=== PATIENT | female | born 1995 | race Caucasian/White ===

== ENCOUNTER 2017-01-18 10:11 | Inpatient (IN) ==
[2017-01-18 11:06] LABS: Basophils % 0.3 %; Eosinophils # 0.1 K/mcL (0.0-0.6); Eosinophils % 0.5 %; Hematocrit 34.7 % (35.3-44.9); Hemoglobin 11.6 g/dL (11.5-15.4); Immature Granulocytes % 0.2 % (0-4); Lymphocytes # 1.5 K/mcL (0.6-4.6); Lymphocytes % 15.1 %; Mean Corpuscular HGB Conc 33.4 g/dL (31.6-35.5); Mean Corpuscular Hemoglobin 28.4 pg (28.0-33.3); Mean Corpuscular Volume 84.8 fL (83.0-100.0); Mean Platelet Volume 10.3 fL (9.4-12.4); Monocytes # 0.5 K/mcL (0.0-1.3); Monocytes % 4.4 %; Neutrophils # 8.1 K/mcL (1.6-8.9); Platelet Count 241 K/mcL (140-400); Red Blood Count 4.09 M/mcL (3.82-4.97); Red Cell Distribution Width 13.2 % (11.5-14.5); Segmented Neutrophils % 79.5 %
[2017-01-18 11:19] LABS: Alanine Aminotransferase 7 Units/L (0-55); Aspartate Amino Transferase 11 Units/L (5-34); BUN/Creatinine Ratio 6 (6-26); Lactate Dehydrogenase 178 Units/L (159-327); Uric Acid 3.7 mg/dL (2.6-6.0); eGFR For African Americans > 60 (> 60); eGFR For Non-African Americans > 60 (> 60)
[2017-01-18 11:23] LABS: Blood Urea Nitrogen 4 mg/dL (7-20); Protein/Creatinine Ratio,Urine 0.39 mg/mg (0-0.20)
[2017-01-18] MEDS ORDERED: Famotidine 20 MG/2 ML VIAL IVP PRN (11:50)
[2017-01-18] MEDS ORDERED: Naloxone 0.4 MG/ML INJ IVP PRN (11:50)
--- NOTE | 2017-01-18 12:15 | OB/GYN History & Physical ---
Date of Encounter: 01/18/17 Time of Encounter: 12:10 Assessment and Plan (1) 37 weeks gestation of Current visit: Yes Status: Acute admit for delivery (2) PIH ( induced hypertension), antepartum Current visit: Yes Status: Acute Continue to monitor BPs Delivery at 37 weeks History of Present Illness Chief complaint: Gestational Hypertension HPI: Ms. Medel is a 22 year old female at 36w6d presents to labor and delivery from office for PIH evaluation. Patient had elevated BP of 144/94 and repeat BP was 138/100. Patient denies LOF or VB. Denies headache, visual disturbances or epigastric pain. Reports +FM. PIH labs WNL however, Protein creatinine ratio was elevated at 0.39. Discussed patient with Dr. Hannah and decision was made to induce labor at 37 weeks gestation which is at midnight. Blood type:A Positive, Rubella: Immune, Hep. B: nonreactive, GBS: Pending. Past Med Surg Social Fam HX - Past Medical History Source: patient Medical history: no medical history Psychiatric history: no psych history - Past Surgical History Surgical History: no surgical history - Social History Smoking Status: Never smoker Smokeless Tobacco Status: No Alcohol use: none Drug use: none Current living situation: Home - Independent Activity Level: Independent ambulation Recent Out of Country Travel Within the Last 8 Weeks: No Exposure or Possible Exposure to Illness During Travel: No Obstetrical History - Pregnancies : 1 Para: 0 Term: 0 : 0 Ab's: 0 Livin Review of System OB - Constitutional Constitutional ROS IM: no chills, no fever(s), no headache(s) - Cardiovascular Cardiovascular: no lightheadedness, no palpitations, no syncope - Respiratory Respiratory: no dyspnea - Gastrointestinal Gastrointestinal: no constipation, no cramping, no diarrhea, no heartburn, no nausea, no vomiting - Genitourinary Genitourinary: no abnormal vaginal bleeding, no dysuria, no flank pain, no urinary hesitancy, no urinary urgency, no vaginal discharge, no vaginal odor Exam - Constitutional Constitutional: well developed, well nourished, no acute distress, average body habitus - HEENT HEENT: Normocephaly, Mucus Membranes Moist - Neck Neck exam: full ROM, supple - Lungs Respiratory exam: CTAB - Cardiovascular Cardiovascular exam: RRR, +S1, +S2 - Abdomen Abdomen: Present: bowel sounds normal, gravid, non tender - Extremities Extremities exam: full ROM, normal capillary refill, normal inspection Deep Tendon Reflex Grade: 2+ Normal - Cervix Dilation: 2 Effacement: 70 Station: -1 - Uterus Uterus exam: Present: normal size, normal contour - Anus/Rectum Anus/Rectum: Present: normal perianal skin - Comments Comments: FHR 135 bpm moderate variability +15x15 accels no decels noted. Contractions 1- 3.5 min apart. Cat. 1 tracing. Results Result Diagrams: 01/18/17 10:35 01/18/17 10:35 Abnormal lab results Hct 34.7 % (35.3-44.9) L 01/18/17 10:35 BUN 4 mg/dL (7-20) L 01/18/17 10:35 Protein/Creatinin Ratio 0.39 mg/mg (0-0.20) H 01/18/17 10:35 Urine Total Protein 87 mg/dL (1-14) H 01/18/17 10:35 All other labs normal. - VTE Reasons for not Prescribing Prophylaxis: Treatment not Indicated - Low risk for VTE
--- NOTE | 2017-01-18 20:50 | Anesthesia Evaluation PreOp ---
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: Denies Any Significant HX Other Medical History: GERD Anesthesia History: No Prior Anesthetic Complications (none) : Yes Test: Positive Alcohol Use: none Drug use: none Medications and Allergies Vits #90/Iron Fum/FA [ Formula Tablet] 1 each PO DAILY [History] Promethazine [Phenergan] 25 mg PO Q6HR 01/18/17 [History] Allergies No Known Allergies Allergy (Verified 01/18/17 15:55) - Meds/Allergy Pre-op Review Medications Reviewed: Yes Allergies Reviewed: Yes Beta Blockers on Current Med List: No Anesthesia Results - Labs 01/18/17 10:35 01/18/17 10:35 Anesthesia Exam 123/76 92 16 fht 144 Height: 5'5" Weight: 90 kg NPO (# of Hours): 3 Pain Scale: 2 Pain Scale Used: Numeric (1 - 10) - HEENT Pupil (Motor): Pupils equal Mallampati: II Teeth: Poor dentition Oral Opening: Greater than 3 - VULCANIZING MACHINE OPERATOR LOC: Oriented VULCANIZING MACHINE OPERATOR Motor: Normal RUE, Normal LUE, Normal RLE, Normal LLE, Normal Face VULCANIZING MACHINE OPERATOR Sensory: Normal: RUE, LUE, RLE, LLE, Face - Cardiac Murmur: None - Pulmonary Breath Sounds: bilateral Clear Respiratory Effort: Symmetrical Anesthesia Assess/Plan ASA Score: 2 Modified Evelina Scale for Level of Consciousness: Cooperative, oriented, and tranquil Anesthetic Plan: Regional Autologous Blood: No Monitoring Plan: Standard Monitors Recovery Plan: Other (risks discussed, questions answered, consented)
[2017-01-19] MEDS ORDERED: miSOPROStol 25 MCG TABLET VG PRN
[2017-01-19] MEDS ORDERED: Ondansetron 4 MG/2 ML VIAL IVP PRN (04:32)
[2017-01-19] MEDS ORDERED: Ringers Solution, Lactated 1,000 ML ONE ×3 (04:34→08:44)
[2017-01-19] MEDS ORDERED: *HR* Nalbuphine 20 MG/ML AMPUL IVP PRN (05:33)
--- NOTE | 2017-01-19 06:26 | OB Labor Progress Note ---
Date of Encounter: 01/19/17 Time of Encounter: 06:24 Labor Progress Note - Subjective Subjective: Patient resting at this time. Discussed POC with patient. Patient denies any questions or concerns. - Cervix Cervix: 4/90/-1 - Heart Tones Heart Tones: 145 bpm moderate variability +15x15 accels no decels noted. Cat. 1 tracing - Heart [place]: 1-2 min apart - Interventions Interventions: SVE, AROM moderate amount of clear fluid. IUPC placed without diffiuculty. Patient tolerated well. - Plan Plan: Continue labor management.
[2017-01-19] MEDS ORDERED: *HR* Ropivacaine/PF 0.2% 10 ML AMPUL ONE (07:38)
[2017-01-19] MEDS ORDERED: *HR* FentaNYL (PF) 100 MCG/2 ML VIAL ONE (07:38)
[2017-01-19] MEDS ORDERED: Epidural Premix (fent/bupiv) 110 ML EP ONE (07:38)
[2017-01-19] MEDS ORDERED: *HR* FentaNYL (PF) 100 MCG/2 ML VIAL EP ONE (08:08)
[2017-01-19] MEDS ORDERED: EPHEDrine 50 MG/ML VIAL IVP PRN (08:08)
[2017-01-19] MEDS ORDERED: *HR* Ropivacaine/PF 0.2% 10 ML AMPUL EP ONE (08:08)
--- NOTE | 2017-01-19 08:11 | Anesthesia Procedures ---
Date of Encounter: 01/19/17 Time of Encounter: 07:45 Procedures: Anesthesia - Epidural/Spinal Patient ID/Chart reviewed: Yes Patient examined: Yes OB Eval: Contractions: Non-stressed pattern Consent Obtained: Yes Supplemental Oxygen: None/Room Air Site Prep: Aseptic Technique, 0.5% Chlorhexidine/Alcohol Patient position: upright Local Anesthetic: Lidocaine 1% Touhy Needle Gauge: 18 Touhy Needle Depth (cm): 6 Catheter Depth at Skin (cm): 10 Test Dose Result: Negative Loading Dose: Fentanyl (mcg): 100 Loading Dose: Other: 0.2% ropivaine 6cc, 2cc nss Loading Dose Administered: Thru Touhy Needle Infusion Med: 0.125% Bupivacaine w/ 2 mcg/ml Fentanyl Infusion Rate (mls/hr): [address]: Tegaderm Interspace Used: L3-L4 Loss of Resistance (SONJA): Yes Blood: No CSF: No Paresthesia: No
[2017-01-19] MEDS ORDERED: Epidural Premix (fent/bupiv) 110 ML EP SCH (08:15)
[2017-01-19] MEDS ORDERED: Oxytocin 20 units/ LR 1000 mL 20 UNIT/1,000 ML BAG IVC ONE ×2 (08:44→15:08)
[2017-01-19] MEDS ORDERED: Lidocaine 1% 20 ML MDV ONE (10:33)
--- NOTE | 2017-01-19 10:40 | OB Labor Progress Note ---
Date of Encounter: 01/19/17 Time of Encounter: 10:15 Labor Progress Note - Subjective Subjective: Patient resting comfortably in bed with epidural in place. No complaints - Vital Signs Vital Signs: VSS - Cervix Cervix: 6/90/0 at last exam by RN - Heart Tones Heart Tones: 130 with moderate variability accels present no decels - [place]: Contractions every 2-4 minutes 60 seconds in length - Interventions Interventions: reposition - Plan Plan: Continue with routine labor management Anticipate vaginal delivery Pain well controlled Anticipate vaginal delivery POC per consult with Dr Oakley
--- NOTE | 2017-01-19 12:48 | OB/GYN Procedure Note ---
Delivery - Delivery Date: 01/19/17 Provider: Brianna Craig (Dr Oakley present for proctoring) Intrapartum events: none Delivery induction: misoprostol Delivery augmentation: rupture of membranes Delivery monitor: external FHT, external uterine, internal uterine Anesthesia: local, epidural Estimated Blood Loss: 200 - (s) Infant A Delivery Date: 01/19/17 Delivery Time: 11:59 Presentation: vertex Position: SONJA Route of delivery: Gender: Male Viability: Viable Pounds: 6 Ounces: 9 Weight Gram: 2.98 kg at 1 minute: 8 at 5 mins: 9 Shoulder Dystocia: not encountered Specimens collected: cord blood Placenta: spontaneous Cord: 3 umbilical vessels - Repair Episiotomy: none Laceration Description: Periurethral (hemostatic), Vaginal (right and left vaginal lacerations), Labial (right labial hemostatic) - Complications Delivery complications: none Delivery comments: Patient progressed to complete and began coached pushing. of viable male infant in the SONJA position with a posterior compound hand. placed on maternal abdomen and cord clamped and cut when pulsations ceased. Apgars were 8 and 9 at 1 and 5 minutes of age respectively. No nuchal, no shoulder dystocia , and no meconium encountered. Placenta delivered spontaneously and appears grossly intact upon inspection with 3 vessel cord. Upon vaginal inspection, there were both a hemostatic periurethral and a hemostatic right labial laceration. There were also two posterior bilateral vaginal wall lacerations that were repaired with 3-0 vicryl in the usual fashion. Dr Oakley was present for the for proctoring. EBL 200. and mother in skin to skin and stable in the room for recovery. - Disposition Mom disposition: stable in LDR disposition: stable in LDR
[2017-01-19] MEDS ORDERED: Acetaminophen 325 MG TABLET PO PRN (15:08)
[2017-01-19] MEDS ORDERED: Oxytocin 20 units/ LR 1000 mL 20 UNIT/1,000 ML BAG IVC SCH (15:08)
[2017-01-20] MEDS: Ibuprofen 600 MG TABLET PO SCH ×2 (07:23→17:23)
[2017-01-20 08:12] VITALS: BP 118/73
[2017-01-20 08:34] LABS: Basophils % 0.4 %; Eosinophils % 0.3 %; Hematocrit 31.4 % (35.3-44.9); Hemoglobin 10.2 g/dL (11.5-15.4); Immature Granulocytes % 0.8 % (0-4); Lymphocytes # 1.6 K/mcL (0.6-4.6); Lymphocytes % 17.1 %; Mean Corpuscular HGB Conc 32.5 g/dL (31.6-35.5); Mean Corpuscular Volume 86.3 fL (83.0-100.0); Mean Platelet Volume 10.2 fL (9.4-12.4); Monocytes # 0.5 K/mcL (0.0-1.3); Monocytes % 5.3 %; Neutrophils # 6.9 K/mcL (1.6-8.9); Platelet Count 219 K/mcL (140-400); Red Blood Count 3.64 M/mcL (3.82-4.97); Red Cell Distribution Width 13.2 % (11.5-14.5); Segmented Neutrophils % 76.1 %
[2017-01-20 08:48] LABS: Alanine Aminotransferase 8 Units/L (0-55); Aspartate Amino Transferase 16 Units/L (5-34); BUN/Creatinine Ratio 8 (6-26); Lactate Dehydrogenase 183 Units/L (159-327); Uric Acid 4.1 mg/dL (2.6-6.0); eGFR For African Americans > 60 (> 60); eGFR For Non-African Americans > 60 (> 60)
[2017-01-20 08:55] LABS: Blood Urea Nitrogen 5 mg/dL (7-20)
[2017-01-20] MEDS ORDERED: NON-FORMULARY MEDICATION 1 EACH EACH (Prenatal Vits #90/Iron Fum/Fa [Prenatal Formula Tabl PO SCH (09:00)
[2017-01-20] MEDS ORDERED: Prenatal Vit/FA 1 EACH TABLET PO SCH (09:00)
--- NOTE | 2017-01-20 09:58 | Discharge Summary ---
Date of Encounter: 01/20/17 Time of Encounter: 09:54 - Discharge Diagnosis (1) Vaginal delivery Priority: Primary Status: Acute Comments: Pt states feels well. Pain well managed on po pain medication. Denies headache, visual changes or epigastric pain. Desires discharge. - Discharge Medications Prescriptions: Ibuprofen [Motrin] 600 mg PO Q6HR #60 tab Docusate [Colace] 100 mg PO BID #60 Ferrous Sulfate 325 mg PO DAILY #60 tab Home Medications: Acetaminophen [Tylenol] 650 mg PO Q6HR PRN tab 01/20/17 [Rx] Docusate [Colace] 100 mg PO BID #60 01/20/17 [Rx] Ferrous Sulfate 325 mg PO DAILY #60 tab 01/20/17 [Rx] Ibuprofen [Motrin] 600 mg PO Q6HR #60 tab 01/20/17 [Rx] Vit/FA 1 each PO DAILY tab 01/20/17 [Rx] Allergies/Adverse Reactions: Allergies No Known Allergies Allergy (Verified 01/18/17 15:55) Data Procedures and tests throughout hospitalization: Laboratory Tests 01/18/17 01/18/17 01/18/17 09:45 10:35 10:35 WBC 10.2 RBC 4.09 Hgb 11.6 Hct 34.7 L MCV 84.8 MCH 28.4 MCHC 33.4 RDW 13.2 Plt Count 241 MPV 10.3 Immature Gran % 0.2 Seg Neutrophils % 79.5 Lymphocytes % 15.1 Monocytes % 4.4 Eosinophils % 0.5 Basophils % 0.3 Neutrophils # 8.1 Lymphocytes # 1.5 Monocytes # 0.5 Eosinophils # 0.1 Basophils # 0.0 BUN Creatinine Est GFR ( Amer) Est GFR (Non-Af Amer) BUN/Creatinine Ratio Uric Acid AST ALT Lactate Dehydrogenase Urine Creatinine 221 Protein/Creatinin Ratio 0.39 H Urine Total Protein 87 H Group B Strep (PCR) Negative 01/18/17 01/20/17 01/20/17 10:35 08:19 08:19 WBC 9.1 RBC 3.64 L Hgb 10.2 L Hct 31.4 L MCV 86.3 MCH 28.0 MCHC 32.5 RDW 13.2 Plt Count 219 MPV 10.2 Immature Gran % 0.8 Seg Neutrophils % 76.1 Lymphocytes % 17.1 Monocytes % 5.3 Eosinophils % 0.3 Basophils % 0.4 Neutrophils # 6.9 Lymphocytes # 1.6 Monocytes # 0.5 Eosinophils # 0.0 Basophils # 0.0 BUN 4 L 5 L Creatinine 0.63 0.64 Est GFR ( Amer) > 60 > 60 Est GFR (Non-Af Amer) > 60 > 60 BUN/Creatinine Ratio 6 8 Uric Acid 3.7 4.1 AST 11 16 ALT 7 8 Lactate Dehydrogenase 178 183 Urine Creatinine Protein/Creatinin Ratio Urine Total Protein Group B Strep (PCR) Labs on day of discharge: Labs from last 24 hours 01/20/17 01/20/17 08:19 08:19 WBC 9.1 RBC 3.64 L Hgb 10.2 L Hct 31.4 L MCV 86.3 MCH 28.0 MCHC 32.5 RDW 13.2 Plt Count 219 MPV 10.2 Immature Gran % 0.8 Seg Neutrophils % 76.1 Lymphocytes % 17.1 Monocytes % 5.3 Eosinophils % 0.3 Basophils % 0.4 Neutrophils # 6.9 Lymphocytes # 1.6 Monocytes # 0.5 Eosinophils # 0.0 Basophils # 0.0 BUN 5 L Creatinine 0.64 Est GFR ( Amer) > 60 Est GFR (Non-Af Amer) > 60 BUN/Creatinine Ratio 8 Uric Acid 4.1 AST 16 ALT 8 Lactate Dehydrogenase 183 Date of admission: 01/18/17 10:11 Primary care physician: PCP NO Consults: 01/19/17 08:02 Consult to Ecommerce Project Manager ([employer]) [CONS] Stat Reason For Exam: Social problems Reason for SW Consult: FOB may not be present for delivery; very stressful to patient Discharging clinician: Angelita Lozada Anticipated date of discharge: 01/20/17 - Patient Status Disposition: Home, Self-Care Functional capacity at discharge: independent ambulation Overall status at discharge: patient is back to baseline - Discharge Instructions Instructions: Chronic Hypertension (DC) Follow Up With: NO,PCP [Primary Care Provider] - - Diet and Activity Activity: resume usual activities as tolerated Diet: regular diet Hospital Course Reason for admission: IUP at term Delivery: Episiotomy: none Laceration: vaginal side wall, other (periuretheral, labial) complications: none Discharge diagnosis: IUP at term delivered [place] baby: male Hospital course: Delivery - Delivery Date: 01/19/17 Provider: Brianna Craig (Dr Oakley present for proctoring) Intrapartum events: none Delivery induction: misoprostol Delivery augmentation: rupture of membranes Delivery monitor: external FHT, external uterine, internal uterine Anesthesia: local, epidural Estimated Blood Loss: 200 - Infant (s) Infant A Infant Delivery Date: 01/19/17 Infant Delivery Time: 11:59 Presentation: vertex Position: SONJA Route of delivery: Gender: Male Viability: Viable Pounds: 6 Ounces: 9 Weight Gram: 2.98 kg at 1 minute: 8 at 5 mins: 9 Shoulder Dystocia: not encountered Specimens collected: cord blood Placenta: spontaneous Cord: 3 umbilical vessels - Repair Episiotomy: none Laceration Description: Periurethral (hemostatic), Vaginal (right and left vaginal lacerations), Labial (right labial hemostatic) - Complications Delivery complications: none Delivery comments: Patient progressed to complete and began coached pushing. of viable male in the SONJA position with a posterior compound hand. Infant placed on maternal abdomen and cord clamped and cut when pulsations ceased. Apgars were 8 and 9 at 1 and 5 minutes of age respectively. No nuchal, no shoulder dystocia , and no meconium encountered. Placenta delivered spontaneously and appears grossly intact upon inspection with 3 vessel cord. Upon vaginal inspection, there were both a hemostatic periurethral and a hemostatic right labial laceration. There were also two posterior bilateral vaginal wall lacerations that were repaired with 3-0 vicryl in the usual fashion. Dr Oakley was present for the for proctoring. EBL 200. and mother in skin to skin and stable in the room for recovery. - Disposition Mom disposition: stable in and appropriate for discharge Time Attestation: Total time spent providing and/or coordinating discharge services: Exam - Constitutional Vitals: Temp Pulse Resp BP Pulse Ox 98.5 F 80 16 118/73 99 01/20/17 07:30 01/20/17 07:30 01/20/17 07:30 01/20/17 07:30 01/20/17 04:14 General appearance IM: A&O X 3, no acute distress - Respiratory Respiratory exam: Present: CTAB - Cardiovascular Cardiovascular exam IM: Present: RRR - GI/Abdominal GI/Abdominal exam IM: normal bowel sounds, soft - Uterus Position: At Umbilicus - Extremities Exam Extremities exam IM: Present: normal capillary refill, normal inspection - Neurological Exam Neurological exam: normal gait, oriented X3, reflexes normal - Psychiatric Additional comments: reports good mood
== END 2017-01-20 16:45 | disposition home or self-care (01) | DRG 560 ==
LOC: 1NENULAB → OBSVTOIN 10:11 → 1NENULAB 01-19 00:44 → 1NENUOBS 01-19 15:06
PROVIDERS: ADMIT Advanced Practice Midwife; ATTEND Advanced Practice Midwife